=== PATIENT | male | born 1955 | race Caucasian/White ===

== ENCOUNTER 2018-09-16 11:53 | Inpatient (IN) | payer OTHER ==
[~2018-09-16] VITALS: Ht 182.9 cm; Wt 89.5 kg
[2018-09-16 11:58] VITALS: BP 226/168
[2018-09-16 12:14] LABS: HEMATOCRIT 49.2 % (42.0-52.0); HEMOGLOBIN 16.4 gm/dL (14.0-18.0); MCH 32.3 pg (26.0-34.0); MCHC 33.4 g/dL (28.0-37.0); MCV 96.7 fL (80.0-100.0); MPV 8.9 fl. (7.2-11.1); NUCLEATED RBCS 0 /100WBC; PLATELET COUNT* 237 thou/uL (150-400); RBC 5.09 mil/uL (4.50-6.00); RDW-CV 12.9 % (10.5-14.5); WBC 8.8 thou/uL (4.0-11.0)
[2018-09-16 12:27] LABS: ANION GAP 10 mmol/L (7-16); BUN 13 mg/dL (7-18); CALCIUM 8.7 mg/dL (8.5-10.1); CHLORIDE 103 mmol/L (98-107); CO2 27 mmol/L (21-32); CREATININE 1.1 mg/dL (0.6-1.3); GLUCOSE 113 mg/dL (70-99); SODIUM 140 mmol/L (136-145)
[2018-09-16 12:36] LABS: APTT 25.9 Seconds (25.0-31.3); INR 1.2; PROTIME 11.9 Seconds (9.20-11.50)
[2018-09-16 12:42] LABS: ALBUMIN 3.5 g/dL (3.4-5.0); ALKALINE PHOSPHATASE 100 U/L (46-116); CK-MB MASS 0.7 ng/mL (<0.5-3.6); LIPASE 146 U/L (73-393); MAGNESIUM 1.8 mg/dL (1.8-2.4); NT-PRO BRAIN NAT PEPTIDE 2346 pg/mL (<300); SGOT 23 U/L (15-37); SGPT 35 U/L (30-65); TOTAL BILIRUBIN 1.3 mg/dL (<0.1-1.0); TOTAL PROTEIN 6.9 g/dL (6.4-8.2); TROPONIN-I LEVEL <0.06 ng/mL (<0.06)
[2018-09-16 13:43] LABS: ABSOLUTE BASOPHILS 0.1 thou/uL (0.0-0.2); ABSOLUTE LYMPHOCYTES 1.8 thou/uL (0.8-5.3); ABSOLUTE MONOCYTES 0.8 thou/uL (0.0-1.2); ABSOLUTE NEUTROPHILS 6.2 thou/uL (1.6-8.1); ATYPICAL LYMPHS 2 %; PLATELET ESTIMATE ADEQUATE
[2018-09-16 15:39] LABS: CHOLESTEROL 153 mg/dL (<200); HDL CHOLESTEROL 82 mg/dL (>40); LDL CHOLESTEROL 65 mg/dL (<100); SERUM ASSESSMENT Clear; TC:HDL 1.9 Ratio (Not establshd); TRIGLYCERIDE 32 mg/dL (<150); VLDL 6 mg/dL (<40)
[2018-09-16 16:23] VITALS: BP 148/88
[2018-09-16 16:38] VITALS: BP 162/108
--- NOTE | 2018-09-16 17:08 | 2DMMODE ---
[place] [address] 2 D/M-MODE ECHOCARDIOGRAM Name: NATI JACOBO JR Room: [address] IN [facility]#: [id number] Admission: 09/16/18 Attend Phys: Dilia Owen MD Discharge: Date of : 59 Date of Service: 09/16/18 1708 Report #: [id number] THIS REPORT FOR: //name// APPROVED REPORT Study performed: 09/16/2018 14:54:55 EXAM: Comprehensive 2D, Doppler, and color-flow Echocardiogram Patient Location: In-Patient Room #: er Status: routine BSA: 2.19 HR: 141 bpm BP: 145/116 mmHg Rhythm: Atrial Fibrillation Other Information Study Quality: Good Indications Abnormal ECG Atrial Fibrillation 2D Dimensions IVSd: 15.18 (7-11mm) LVOT Diam: 26.04 (18-24mm) LVDd: 49.40 mm PWd: 14.53 (7-11mm) Ascending Ao: 37.75 (22-36mm) LVDs: 38.66 (25-40mm) Aortic Root: 34.99 mm Volumes Left Atrial Volume (Systole) LA ESV Index: 40.70 mL/m2 Aortic Valve AoV Peak Cesar.: 1.09 m/s AO Peak Gr.: 4.75 mmHg LVOT Max P.49 mmHg AO Mean Gr.: 2.64 mmHg LVOT Mean P.50 mmHg LVOT Max V: 0.79 m/s AO V2 VTI: 16.74 cm LVOT Mean V: 0.58 m/s XIOMARA (VTI): 3.69 cm2 LVOT V1 VTI: 11.60 cm Mitral Valve MV Decel. Time: 151.77 ms MV PHT: 44.01 [place] [address] 2 D/M-MODE ECHOCARDIOGRAM Name: NATI JACOBO JR Room: [address] IN [facility]#: [id number] Admission: 09/16/18 Attend Phys: Dilia Owen MD Discharge: Date of : 59 Date of Service: 09/16/18 1708 Report #: [id number] MVA (PHT): 5.00 cm2 TDI Medial E' Cesar.: 0.11 m/s Lateral E' Cesar.: 0.14 m/s Pulmonary Valve PV Peak Cesar.: 0.85 m/s PV Peak Gr.: 2.89 mmHg Tricuspid Valve RAP Estimate: 5.00 mmHg TR Peak Gr.: 23.50 mmHg RVSP: 28.00 mmHg PA Pressure: 28.00 mmHg Left Ventricle The left ventricle is normal size. There is normal LV segmental wall motion. Borderline concentric left ventricular hypertrophy. Left ventricular systolic function is normal. The left ventricular ejection fraction is within the normal range. LVEF is 50-55%. This study is not technically sufficient to allow evaluation of the LV diastolic function due to atrial fibrillation. Right Ventricle The right ventricle is normal size. The right ventricular systolic function is normal. Atria Left atrium is mildly dilated. Right atrium is mildly dilated. Aortic Valve Mild aortic valve sclerosis. No aortic regurgitation is present. There is no aortic valvular stenosis. Mitral Valve The mitral valve is normal in structure. Mild mitral regurgitation. No evidence of mitral valve stenosis. Tricuspid Valve The tricuspid valve is normal in structure. Mild tricuspid regurgitation. No pulmonary hypertension. Pulmonic Valve The pulmonary valve is normal in structure. There is no pulmonic [place]vular [place] [address] 2 D/M-MODE ECHOCARDIOGRAM Name: NATI JACOBO JR Room: [address] IN [facility]#: [id number] Admission: 09/16/18 Attend Phys: Diila Owen MD Discharge: Date of : 59 Date of Service: 09/16/18 1708 Report #: [id number] Great Vessels The aortic root is normal in size. IVC is normal in size and collapses >50% with inspiration. Pericardium There is no pericardial effusion. Left pleural effusion. <Conclusion> The left ventricle is normal size. Borderline concentric left ventricular hypertrophy. Left ventricular systolic function is normal. The left ventricular ejection fraction is within the normal range. LVEF is 50-55%. This study is not technically sufficient to allow evaluation of the LV diastolic function due to atrial fibrillation. Left atrium is mildly dilated. Right atrium is mildly dilated. Mild aortic valve sclerosis. No aortic regurgitation is present. There is no aortic valvular stenosis. The mitral valve is normal in structure. Mild mitral regurgitation. The tricuspid valve is normal in structure. Mild tricuspid regurgitation. No pulmonary hypertension. IVC is normal in size and collapses >50% with inspiration. There is no pericardial effusion. There is normal LV segmental wall motion. <ELECTRONICALLY SIGNED> By: Stefan Payne MD, FACC 09/16/181707 07 07 Stefan Payne MD, FACC /INF
[2018-09-16 18:13] LABS: CALCIUM 8.7 mg/dL (8.5-10.1); POTASSIUM 3.7 mmol/L (3.5-5.1)
--- NOTE | 2018-09-16 18:31 | NUR ---
ASSUMED PT CARE. REPORT RECEIVED FROM NURSE, PT IS AOX4 ON 2 L NC. O2 SATURATION IS 95%. PT VS TAKEN. BP SBP 160. METROPOLOL GIVEN . CARDIZEM DRIP INFUSING AT 20 PER HOUR. DRIP ORDER WAS CHANGED TO 15 PER HOUR PT HEART RATE DECREASED IN THE 90S. PT IS UP AD LUIS.. DENIES PAIN. ON 200 CC FLUID RESTRICTION. HAS POOR APPETITE. BP RECHECKED 132/112. SKIN INTACT. ADMISSION HX AND ASSESSMENT DONE AT BEDSIDE. EDEMA +1 IN LOWER EXTREMITIES. PT WEIGHT 213 LB FOR TODAY. LASIX GIVEN WELL. WILL CONTINUE TO MONITOR
[2018-09-16 20:00] VITALS: BP 152/99
[2018-09-16 23:54] VITALS: BP 168/99
[2018-09-17 04:00] VITALS: BP 154/95
--- NOTE | 2018-09-17 04:44 | NUR ---
ASSUMED PT CARE AT 1930. ASSESSMENT COMPLETED CHARTED. ABLE TO MAKE NEEDS KNOWN. UP AD LUIS IN ROOM. NO C/O PAIN OR DISCOMFORT. PT RESTING IN BED AT THIS TIME. CARDIZEM GTT RUNNING PER P.O. AT 15ML/HR. VSS. PT STILL IN AFIB. WILL CONTINUE TO MONITOR.
[2018-09-17 04:53] LABS: HEMATOCRIT 44.7 % (42.0-52.0); HEMOGLOBIN 15.5 gm/dL (14.0-18.0); MCH 33.1 pg (26.0-34.0); MCHC 34.6 g/dL (28.0-37.0); MCV 95.7 fL (80.0-100.0); MPV 9.3 fl. (7.2-11.1); RBC 4.68 mil/uL (4.50-6.00); WBC 7.7 thou/uL (4.0-11.0)
[2018-09-17 05:11] LABS: CALCIUM 8.4 mg/dL (8.5-10.1); CREATININE 1.1 mg/dL (0.6-1.3); MAGNESIUM 1.6 mg/dL (1.8-2.4); POTASSIUM 3.1 mmol/L (3.5-5.1)
--- NOTE | 2018-09-17 10:33 | EKG ---
[place] [address] ELECTROCARDIOGRAM REPORT Name: NATI JACOBO JR Room: [address] ADM IN .R.#: [id number] Admission: 09/16/18 Attend Phys: Dilia Owen MD Discharge: Date of : 59 Report #: [id number] THIS REPORT FOR: //name// [facility] ED Test Date: 2018-09-16 Test Time: 11:58:52 Pat Name: NATI JACOBO Department: Room: [facility] Gender: M Chiropractic Physician: GIANCARLO : 1955 Requested By: Ron Navas Order Number: [id number] MD: Fredis Jeong Measurements Intervals [place] Rate: 152 P: [place]: QRS: 36 QRSD: 83 T: 50 QT: 311 QTc: 495 Interpretive Statements Atrial fibrillation Left ventricular hypertrophy Anterior infarct, old No previous ECG available for comparison Electronically Signed On 09-17-2018 10:33:26 CDT by Fredis Jeong [email or web address] <ELECTRONICALLY SIGNED> By: Fredis Jeong MD, [facility] 09/17/18 1033 [id number] [id number] Fredis Jeong MD, FACC /EPI
[2018-09-17 12:17] VITALS: BP 153/89
--- NOTE | 2018-09-17 12:24 | NUR ---
Pt is A&O. Resides at home with . Independent. No DME. No hx of HH or SNF. Goal is home at de, following.
[2018-09-17 16:45] VITALS: BP 141/97
--- NOTE | 2018-09-17 17:49 | NUR ---
ASSUMED PT CARE AT 0700, PT A&O X4, UP AD LUIS, PT HYPERTENSIVE AND TACHYCARDIC BUT ASYMPTOMATIC, PATTERN SCRATCHER TRACING AFIB, NEW ORDER FOR 300MG FLECCAINIDE ADMINISTERED, PT CONVERTED INTO SINUS RHYTHM WITH 1ST DEGREE AV BLOCK, REMAINS HYPERTENSIVE BUT NO LONGER TACHYCARDIC, CAMMIE AND CARDIOVERSION FOR TOMORROW CANCELLED. REMAINS ON 2000CC FLUID RESTREICTION, NO EDEMA NOTED AT THIS TIME AND PT DENIES ANY SOA. AT BEDSIDE, HOURLY ROUNDING COMPLETED.
[2018-09-17 20:00] VITALS: BP 150/100
[2018-09-18] VITALS: BP 152/95
[2018-09-18 04:00] VITALS: BP 158/103
[2018-09-18 05:41] LABS: CALCIUM 8.5 mg/dL (8.5-10.1); CREATININE 1.1 mg/dL (0.6-1.3); MAGNESIUM 1.7 mg/dL (1.8-2.4); POTASSIUM 3.4 mmol/L (3.5-5.1)
--- NOTE | 2018-09-18 06:50 | NUR ---
ASSUMED PT CARE AT 1930. ASSESSMENT COMPLETED CHARTED. ABLE TO MAKE NEEDS KNOWN. UP AD LUIS IN ROOM. NO C/O PAIN OR DISCOMFORT. PT STAYING IN SR. PT RESTING IN BED ALL NIGHT. WILL CONTINUE TO MONITOR.
[2018-09-18 10:47] VITALS: BP 166/112
[2018-09-18 10:56] VITALS: BP 166/112
[2018-09-18] MEDS ORDERED: FLECAINIDE ACET50 M1 PO (11:15)
[2018-09-18] MEDS ORDERED: TOPROL XL100 MG PO (11:15)
[2018-09-18] MEDS ORDERED: LASIX 40 MG TAB40 M2 PO (11:15)
[2018-09-18] MEDS ORDERED: DILTIAZEM 24HR180 M1 PO (11:15)
[2018-09-18] MEDS ORDERED: ASA81BEC PO (11:15)
[2018-09-18] MEDS ORDERED: ELIQUIS5 MG PO (11:15)
--- NOTE | 2018-09-18 14:10 | NUR ---
ASSUMED PT CARE AT 0700, PT A&O X4, HYPERTENSIVE, RA, FORENSIC BALLISTICS EXPERT TRACING SINUS RHYTHM WITH 1ST DEGREE AV BLOCK, FULL ASSESSMENT CHARTED. PT UP AD LUIS, DENIES ANY PAIN OR SOA. PT DISCHARGED FROM UNIT TO HOME WITH SIGNIFICANT OTHER AT APPROX 1400. EDUCATED ON ALL DISCHARGE INSTRUCTIONS INCLUDING FOLLOW UP APPOINTMENTS AND MEDICATIONS. IV AND FORENSIC BALLISTICS EXPERT REMOVED, HOURLY ROUNDING COMPLETED.
--- NOTE | 2018-09-19 09:19 | EKG ---
[place] [address] ELECTROCARDIOGRAM REPORT Name: NATI JACOBO JR Room: [address] DIS IN M.R.#: [id number] Admission: 09/16/18 Attend Phys: Dilia Owen MD Discharge: 09/18/18 Date of : 59 Report #: [id number] THIS REPORT FOR: //name// [facility] Test Date: 2018-09-18 Test Time: 09:11:20 Pat Name: NATI JACOBO Department: Room: [address] Gender: M Synthetic Resin Operator: : 1955 Requested By: Ethel Wagner Order Number: [id number] William MD: Fredis Jeong Measurements Intervals [place] Rate: 81 P: 37 RI: 212 QRS: 5 QRSD: 102 T: 58 QT: 456 QTc: 530 Interpretive Statements Sinus rhythm Prolonged RI interval Probable left atrial enlargement Left ventricular hypertrophy ST elevation, consider repolarization abnormality Prolonged QT interval Compared to ECG 09/16/2018 11:58:52 First degree AV block now present ST (T wave) deviation now present Prolonged QT interval now present Atrial fibrillation no longer present Electronically Signed On 09-19-2018 9:18:57 CDT by Fredis Jeong [email or web address] <ELECTRONICALLY SIGNED> By: Fredis Jeong MD, FACC 09/19/18917 0 0 Fredis Jeong MD, FACC /EPI
== END 2018-09-18 14:00 | disposition home or self-care (01) | DRG 291 ==
LOC: M.ERS 11:53 → M.TBA-ER 12:57 → M.2W 12:57
PROVIDERS: Family Medicine; Internal Medicine; Registered Nurse; ADMIT Family Medicine
DX: I11.0 Hypertensive heart disease with heart failure (principal); J81.0 Acute pulmonary edema; I50.31 Acute diastolic (congestive) heart failure; J91.8 Pleural effusion in other conditions classified elsewhere; I48.0 Paroxysmal atrial fibrillation; F12.90 Cannabis use, unspecified, uncomplicated; E80.6 Other disorders of bilirubin metabolism; E87.70 Fluid overload, unspecified; F10.10 Alcohol abuse, uncomplicated; Z79.82 Long term (current) use of aspirin; Z82.49 Family history of ischemic heart disease and other diseases of the circulatory system; Z79.899 Other long term (current) drug therapy

== ENCOUNTER 2020-10-02 11:55 | Emergency (ER) | payer OTHER ==
[~2020-10-02] VITALS: Ht 182.9 cm; Wt 90.7 kg
[~2020-10-02 11:55] MED LIST: ASA81BEC PO; DILTIAZEM 24HR180 M1 PO; ELIQUIS5 MG PO; FLECAINIDE ACET50 M1 PO; LASIX 40 MG TAB40 M2 PO; TOPROL XL100 MG PO
[2020-10-02] MEDS ORDERED: PROSCAR 5MG TABL5 MG PO (12:11)
[2020-10-02] MEDS ORDERED: MEDROLDOSEPACK PO (13:43)
[2020-10-02] MEDS ORDERED: BENADRYL25 MG PO (13:43)
[2020-10-02] MEDS ORDERED: ZYRTEC10 MG PO (13:43)
[2020-10-02] MEDS ORDERED: PEPCID20 MG PO (13:43)
[2020-10-02 14:26] VITALS: BP 164/94
== END 2020-10-02 14:27 | disposition home or self-care (01) ==
LOC: M.ERS 11:55
DX: T63.481A Toxic effect of venom of other arthropod, accidental (unintentional), initial encounter (principal); I10 Essential (primary) hypertension; Z79.899 Other long term (current) drug therapy; Y93.H2 Activity, gardening and landscaping; Y92.89 Other specified places as the place of occurrence of the external cause; Y99.8 Other external cause status